=== PATIENT | female | born 1995 | race Caucasian/White ===

== ENCOUNTER 2018-02-20 19:19 | Emergency (ER) | payer OTHER ==
[2018-02-20 22:17] LABS: URINE BLOOD (Dip) POC Negative (NEGATIVE); URINE GLUCOSE (Dip) POC Negative (NEGATIVE); URINE KETONES (Dip) POC Negative (NEGATIVE); URINE LEUKOCYTE EST (Dip) POC Negative (NEGATIVE); URINE NITRITE (Dip) POC Negative (NEGATIVE); URINE TOTAL PROTEIN POC Negative (NEGATIVE)
[2018-02-20 22:17] LABS: URINE PH (Dip) POC 6.5 (5.0-8.5)
[2018-02-20] MEDS: IBUPROFEN 600 MG TAB PO (22:33)
== END 2018-02-20 22:39 | disposition home or self-care (01) ==
LOC: FTE 19:19
DX: J02.9 Acute pharyngitis, unspecified (principal); R10.2 Pelvic and perineal pain
CPT/HCPCS: 81003; 81025; 99283

== ENCOUNTER 2018-08-03 17:01 | Emergency (ER) | payer MEDICAID, OTHER | END 2018-08-03 18:28 | disposition home or self-care (01) | LOC: E/R 17:01 | DX: J02.9 Acute pharyngitis, unspecified (principal) | CPT/HCPCS: 99283; Z7502 ==